=== PATIENT | male | born 1935 | race Two or more races ===

== ENCOUNTER 2022-12-07 06:54 | Day surgery (SDC) | payer MEDICARE ==
[~2022-12-07] VITALS: Ht 175.3 cm; Wt 96.6 kg
[2022-12-07 06:23] LABS: Basophils # (auto) 0 10 ^3/uL (0-0.2); Basophils % (auto) 0.3 % (0.0-2.0); Eosinophils # (auto) 0.1 10 ^3/uL (0-0.8); Eosinophils % (auto) 2.8 % (0.0-7.0); Hematocrit 35.6 % (41.0-53.0); Hemoglobin 11.9 g/dL (13.5-17.5); Lymphocytes % (auto) 24.5 % (10.0-50.0); Mean Corpuscular Hgb Conc. 33.3 g/dL (32.0-36.0); Monocytes # (auto) 0.6 10 ^3/uL (0-1.3); Monocytes % (auto) 13.7 % (0.0-12.0); Neutrophils # (auto) 2.5 10 ^3/uL (1.6-8.6); Neutrophils % (auto) 58.7 % (37.0-80.0); Nucleated Red Blood Cells % 0.2 %; Red Blood Cells 3.95 10^6/uL (4.5-5.90); Red Cell Distribution Width 15.3 % (11.8-14.3); White Blood Cell 4.2 10^3/uL (4.4-10.8)
[2022-12-07 06:40] LABS: INR 1.07 (0.9-1.15); Partial Thromboplastin Time 30.2 sec (24.6-33.4)
[2022-12-07 06:48] LABS: Albumin 3.7 g/dL (3.4-5.0); Calcium 8.9 mg/dL (8.5-10.1); Potassium 3.8 mmol/L (3.5-5.1)
[2022-12-07 06:54] LABS: BUN/Creatinine Ratio 23.7 (10.0-20.0); Bilirubin, Total 0.8 mg/dL (0.2-1.0)
[~2022-12-07 06:54] MED LIST: HYDR-4902 PO; MELA3TAB27 PO; SPIR25TA8 PO; TAM04C PO; TOPI25CA5 PO; WARF2TAB49 PO
[2022-12-07] MEDS ORDERED: LIDOCAINE 2%HCL (LOCAL ANESTH.) INJ 20ML MDV ONE (07:45)
[2022-12-07] MEDS ORDERED: VANCOMYCIN 1GM/250ML 250 ML IV ONE (07:45)
[2022-12-07] MEDS ORDERED: ONDANSETRON HCL 4 MG/2 ML VIAL ONE (08:05)
[2022-12-07] MEDS ORDERED: VANCOMYCIN HCL 1000 MG VL ONE ×2 (08:05→09:28)
[2022-12-07] MEDS ORDERED: fentaNYL CITRATE 100 MCG/2 ML VL ONE (08:06)
[2022-12-07] MEDS ORDERED: MIDAZOLAM HCL 2MG/2ML 2ml VIAL (1mg/ml) ONE (08:06)
[2022-12-07] MEDS ORDERED: ATROPINE SULF 1 MG/10ml SYR ONE (08:06)
[2022-12-07] MEDS ORDERED: HYDROmorphone HCL 2 MG/ML VL/or syr ONE (08:52)
[2022-12-07 10:32] VITALS: BP 106/76
[2022-12-07] MEDS ORDERED: ceFAZolin 2 GM/D5W100ml 100 ML IV ONE ×2 (10:45)
[2022-12-07] MEDS ORDERED: HYDROcodone-ACET 5/325MG TAB PO ONE (10:45)
[2022-12-07] MEDS ORDERED: HYDROcodone-ACET 10/325MG TAB PO PRN (10:45)
[2022-12-07] MEDS ORDERED: HYDROcodone-ACET 10/325MG TAB PO ONE (10:45)
[2022-12-07 11:17] VITALS: BP 166/102
[2022-12-07 11:32] VITALS: BP 156/89
[2022-12-07 12:00] VITALS: BP 149/86
[2022-12-07 12:30] VITALS: BP 149/93
[2022-12-07 13:30] VITALS: BP 103/50
== END 2022-12-07 14:00 | disposition home or self-care (01) ==
LOC: CATH 06:54
PROVIDERS: ATTEND Specialist
DX: Z45.02 Encounter for adjustment and management of automatic implantable cardiac defibrillator (principal); I48.91 Unspecified atrial fibrillation; Z87.891 Personal history of nicotine dependence; Z79.899 Other long term (current) drug therapy
CPT/HCPCS: 33264; 36415; 80053; 85025; 85610; 85730; 93005; J1170; J2250; J3010; J3370; J7030; 99152; 99153; C1882; J2405